=== PATIENT | female | born 1965 | race Caucasian/White ===

== ENCOUNTER 2018-05-31 11:44 | Emergency (ER) | payer SELFPAY ==
[~2018-05-31] VITALS: Ht 157.5 cm; Wt 49.9 kg
[2018-05-31 11:56] VITALS: BP 133/84
[2018-05-31 12:51] LABS: BILIRUBIN,URINE NEGATIVE (NEG); CLARITY,URINE CLEAR; COLOR,URINE YELLOW; NITRITE,URINE NEGATIVE (NEG); PROTEIN,URINE NEGATIVE (NEG-TRACE); UROBILINOGEN,URINE 0.2 mg/dL (0.2 mg/dL)
--- NOTE | 2018-05-31 12:55 | RAD ---
Bilateral hips 2 views each with one view pelvis. HISTORY: Chronic bilateral hip pain Single view was taken of the pelvis. There is no pelvic fracture or acute osseous normality. AP and lateral views were taken of the left hip. There is no fracture or acute osseous abnormality. AP and lateral views were taken of the right hip. There is no fracture or acute osseous abnormality. IMPRESSION: 1. Negative bilateral hips. 2. Negative pelvis. Electronically signed by: Dalton Bennett MD (05/31/2018 12:52 PM) [facility]
[2018-05-31 13:02] LABS: SQUAMOUS EPITHELIAL CELL,UR FEW /LPF
[2018-05-31 13:03] LABS: BACTERIA,URINE 0 /HPF (0-FEW); WBC,URINE OCC /HPF (0-4)
[2018-05-31] MEDS ORDERED: KETOROLAC 60 MG/2 ML VIAL. IM ONE (13:15)
[2018-05-31] MEDS ORDERED: MELO7.5T5 PO (13:28)
--- NOTE | 2018-05-31 13:29 | PHYS DOC ---
Past Medical History Past Medical History: Asthma, COPD, Hypertension Past Surgical History: No Surgical History Alcohol Use: Heavy Drug Use: None Adult General Chief Complaint Chief Complaint: HIP PAIN HPI HPI Patient is a 53 year old female who presents with right hip pain that has worsened over the past 4 days. The patient states that she went to a another ED and had imaging done. They originally told her they thought that she had a broken hip but then later said that the imaging was normal. She states that her hip is continued to worsen. She denies dysuria or other symptoms. She has not taken [id number] pain medication today. Review of Systems Review of Systems Constitutional: Denies fever or chills [] Respiratory: Denies cough or shortness of breath [] Cardiovascular: No additional information not addressed in HPI [] GI: Denies abdominal pain, nausea, vomiting, bloody stools or diarrhea [] : Denies dysuria or hematuria [] Musculoskeletal: See history of present illness Integument: Denies rash or skin lesions [] Neurologic: Denies headache, focal weakness or sensory changes [] Endocrine: Denies polyuria or polydipsia [] All other systems were reviewed and found to be within normal limits, except as documented in this note. Current Medications Current Medications Current Medications Medications (Trade) Dose Ordered Sig/Jen Start Time Stop Time Status Last Admin Dose Admin Ketorolac Tromethamine (Toradol Im) 60 mg 1X ONCE 05/31/18 13:15 05/31/18 13:16 DC 05/31/18 13:13 60 MG Allergies Allergies Allergies Coded Allergies Type Severity Reaction Last Updated Verified Penicillins Allergy Intermediate SWELLING 05/31/18 Yes Physical Exam Physical Exam Constitutional: Well developed, well nourished, no acute distress, non-toxic appearance. [] Cardiovascular:Heart rate regular rhythm, no murmur [] Lungs & Thorax: Bilateral breath sounds clear to auscultation [] Abdomen: Bowel sounds normal, soft, no tenderness, no masses, no pulsatile masses. [] Skin: Warm, dry, no erythema, no rash. [] Back: No tenderness, no CVA tenderness. [] Extremities: tenderness to right hip, no cyanosis, no clubbing, ROM intact, no edema. [] Neurologic: Alert and oriented X 3, normal motor function, normal sensory function, no focal deficits noted. [] Psychologic: Affect normal, judgement normal, mood normal. [] Current Patient Data Vital Signs Vital Signs Date Time Temp Pulse Resp B/P (MAP) Pulse Ox O2 Delivery O2 Flow Rate FiO2 05/31/18 11:56 97.9 90 16 133/84 (100) 99 Room Air 97.9 Lab Values Laboratory Tests Test 05/31/18 12:37 Urine Collection Type Unknown Urine Color Yellow Urine Clarity Clear Urine pH 6.0 Urine Specific [place] <=1.005 Urine Protein Negative mg/dL (NEG-TRACE) Urine Glucose (UA) Negative mg/dL (NEG) Urine Ketones (Stick) Negative mg/dL (NEG) Urine Blood Large (NEG) Urine Nitrite Negative (NEG) Urine Bilirubin Negative (NEG) Urine Urobilinogen Dipstick 0.2 mg/dL (0.2 mg/dL) Urine Leukocyte Esterase Negative (NEG) Urine RBC 6-10 /HPF (0-2) Urine WBC Occ /HPF (0-4) Urine Squamous Epithelial Cells Few /LPF Urine Bacteria 0 /HPF (0-FEW) EKG EKG [] Radiology/Procedures Radiology/Procedures []PATIENT: JAKE SWANACCOUNT: [id number]#: [id number] : 1965 LOCATION: ER AGE: 53 SEX: F EXAM STATUS: REG ER ORD. PHYSICIAN: KAREN PANDYA APRN REASON: worsening right hip pain, hx steroid use PROCEDURE: HIP BILATERAL WITH PELVIS Bilateral hips 2 views each with one view pelvis. HISTORY: Chronic bilateral hip pain Single view was taken of the pelvis. There is no pelvic fracture or acute osseous normality. AP and lateral views were taken of the left hip. There is no fracture or acute osseous abnormality. AP and lateral views were taken of the right hip. There is no fracture or acute osseous abnormality. IMPRESSION: 1. Negative bilateral hips. 2. Negative pelvis. Electronically signed by: Dalton Ross MD (05/31/2018 12:52 PM) [facility] DICTATED and SIGNED BY: DALTON ROSS MD DATE: 05/31/18 9924 Course & Med Decision Making Course & Med Decision Making Pertinent Labs and Imaging studies reviewed. (See chart for details) []The patient was given Toradol in the emergency department for pain. Dragon Disclaimer Dragon Disclaimer This electronic medical record was generated, in whole or in part, using a voice recognition dictation system. Departure Departure Impression: Primary Impression: Hip pain Disposition: 01 HOME, SELF-CARE Condition: STABLE Referrals: NO PCP (PCP) Patient Instructions: Hip Pain Additional Instructions: Take the medication as directed. Do not use ibuprofen or other NSAIDs with this medication. Follow-up with your primary care provider for recheck in 3 days or return to the emergency department if worsening Scripts Meloxicam (MOBIC) 7.5 Mg Tablet 1 TAB PO DAILY for hip pain, #30 TAB 1 Refill Prov: KAREN PANDYA APRN 05/31/18 KAREN PANDYA APRN May 31, 2018 13:29
== END 2018-05-31 13:30 | disposition home or self-care (01) ==
LOC: ER 11:44
DX: M25.551 Pain in right hip (principal); M25.552 Pain in left hip; G89.29 Other chronic pain; J44.9 Chronic obstructive pulmonary disease, unspecified; I10 Essential (primary) hypertension; Z88.0 Allergy status to penicillin
CPT/HCPCS: 73521; 81001; 96372; 99285; J1885

== ENCOUNTER 2018-08-31 12:56 | Emergency (ER) | payer SELFPAY ==
[~2018-08-31] VITALS: Ht 157.5 cm; Wt 49.9 kg
[~2018-08-31 12:56] MED LIST: MELO7.5T5 PO
[2018-08-31 13:27] VITALS: BP 129/75
[2018-08-31] MEDS ORDERED: MUPI22OI2 TP (13:37)
--- NOTE | 2018-08-31 13:38 | PHYS DOC ---
Past Medical History Past Medical History: Asthma, COPD, Hypertension Past Surgical History: No Surgical History Alcohol Use: Heavy Drug Use: None Adult General Chief Complaint Chief Complaint: SKIN PROBLEM HPI HPI Patient is a 53 year old E male who presents to the emergency department with complaints of a itchy red rash to her chest and sometimes has honey crusted scabbing over it for the last week. She denies any fever, cough, nausea, vomiting, or throat, or ear pain. She states that she smokes approximately one pack of cigarettes a day. Patient currently complains of pain a 9 out of 10 on the pain scale, there are no alleviating factors. Review of Systems Review of Systems Constitutional: Denies fever or chills [] Eyes: Denies redness, or eye pain [] HENT: Denies nasal congestion or sore throat [] Respiratory: Denies cough or shortness of breath [] Cardiovascular: No additional information not addressed in HPI [] GI: Denies abdominal pain, nausea, or vomiting Musculoskeletal: Denies back pain or joint pain [] Integument: see history of present illness Neurologic: Denies headache Complete systems were reviewed and found to be within normal limits, except as documented in this note. Allergies Allergies Allergies Coded Allergies Type Severity Reaction Last Updated Verified Penicillins Allergy Intermediate SWELLING 05/31/18 Yes Physical Exam Physical Exam Constitutional: Well developed, well nourished, no acute distress, non-toxic appearance. [] HENT: Normocephalic, atraumatic, bilateral external ears normal, oropharynx moist, nose normal. [] Eyes: conjunctiva normal, no discharge. [] Neck: Normal range of motion, no stridor. [] Cardiovascular:Heart rate regular rhythm, no murmur [] Lungs & Thorax: Bilateral breath sounds clear to auscultation [] Skin: Warm, dry; maculopapular rash noted to chin with some yellow crusting and scabbing present consistent with impetigo Extremities: No cyanosis, ROM intact, Neurologic: Alert and oriented X 3, no focal deficits noted. [] Psychologic: Affect normal, judgement normal, mood normal. [] Current Patient Data Vital Signs Vital Signs Date Time Temp Pulse Resp B/P (MAP) Pulse Ox O2 Delivery O2 Flow Rate FiO2 08/31/18 13:27 98.3 76 16 129/75 (93) 98 Room Air 98.3 EKG EKG [] Radiology/Procedures Radiology/Procedures [] Course & Med Decision Making Course & Med Decision Making Pertinent Labs and Imaging studies reviewed. (See chart for details) [] Angie Disclaimer Shannonon Disclaimer This electronic medical record was generated, in whole or in part, using a voice recognition dictation system. Departure Departure Impression: Primary Impression: Impetigo Disposition: HOME, SELF-CARE Condition: STABLE Referrals: NO PCP (PCP) Patient Instructions: Impetigo Additional Instructions: Fill the prescription and use it as directed, keep fingernails trimmed short and avoid scratching the affected area. Wash your hands thoroughly after applying the medication. Follow-up with your primary care doctor if symptoms persist, return to the ER if symptoms worsen. Scripts Mupirocin (MUPIROCIN OINTMENT) 22 Gm Oint...g. 1 JULIO TP TID for WOUND CARE for 7 Days, #1 TUBE 0 Refills Prov: KEN PIERSON APRN 08/31/18 KEN PIERSON APRN Aug 31, 2018 13:37
== END 2018-08-31 13:42 | disposition home or self-care (01) ==
LOC: ER 12:56
DX: L01.00 Impetigo, unspecified (principal); J44.9 Chronic obstructive pulmonary disease, unspecified; I10 Essential (primary) hypertension; F10.20 Alcohol dependence, uncomplicated; Z88.0 Allergy status to penicillin; Y90.9 Presence of alcohol in blood, level not specified
CPT/HCPCS: 99283

== ENCOUNTER 2019-04-13 12:50 | Emergency (ER) | payer SELFPAY ==
[~2019-04-13] VITALS: Ht 157.5 cm; Wt 50.0 kg
[~2019-04-13 12:50] MED LIST changes: +MUPI22OI2 TP
[2019-04-13 13:08] VITALS: BP 142/69
--- NOTE | 2019-04-13 13:32 | PHYS DOC ---
Past Medical History Past Medical History: Asthma, COPD, Hypertension Past Surgical History: No Surgical History Smoking Status: Current Every Day Smoker Alcohol Use: Heavy Drug Use: None Adult General Chief Complaint Chief Complaint: Neck Pain HPI HPI Patient is a 54 year old female who presents with neck pain has been ongoing for month. The patient states that a week and a half ago she helped a friend move and the pain got worse after this. She denies fevers. Complete ROS were reviewed and found to be within normal limits, except as documented in the HPI Allergies Allergies Allergies Coded Allergies Type Severity Reaction Last Updated Verified Penicillins Allergy Intermediate SWELLING 05/31/18 Yes Physical Exam Physical Exam Constitutional: Well developed, well nourished, no acute distress, non-toxic appearance. [] HENT: Normocephalic, atraumatic, bilateral external ears normal, oropharynx moist, no oral exudates, nose normal. [] Eyes: PERRLA, EOMI, conjunctiva normal, no discharge. [] Neck: Normal range of motion, neck tenderness to palpation, tenderness following the left trapezius muscle, supple, no stridor. [] Neurologic: Alert and oriented X 3, normal motor function, normal sensory function, no focal deficits noted. [] Psychologic: Affect normal, judgement normal, mood normal. [] Current Patient Data Vital Signs Vital Signs Date Time Temp Pulse Resp B/P (MAP) Pulse Ox O2 Delivery O2 Flow Rate FiO2 04/13/19 13:08 98.5 96 20 142/69 (93) 96 Room Air 98.5 EKG EKG [] Radiology/Procedures Radiology/Procedures [] Course & Med Decision Making Course & Med Decision Making Pertinent Labs and Imaging studies reviewed. (See chart for details) Appears to have strained her trapezius muscle. Discussed over the counter interventions such as Therma Care heat, and foam roller. A medical screening exam was performed on this patient and the patient does not appear to be having a medical emergency. Her symptoms are not of sufficient severity and within reasonable medical probability it is unlikely the absence of immediate medical attention would result in placing the health of the individual (or, with respect to a woman, the health of the woman or her unborn child) in serious jeopardy, serious impairment to bodily functions, or serious dysfunction of any bodily organ or part. If , the patient is not in labor Dragon Disclaimer Dragon Disclaimer This electronic medical record was generated, in whole or in part, using a voice recognition dictation system. Departure Departure Impression: Primary Impression: Muscle strain Disposition: 07 AGAINST MEDICAL ADVICE (eloped after talking with registration) Condition: STABLE Referrals: NO PCP (PCP) ALEXX BURRIS APRN Apr 13, 2019 13:32
== END 2019-04-13 13:29 | disposition home or self-care (01) ==
LOC: ER 12:50
DX: S16.1XXA Strain of muscle, fascia and tendon at neck level, initial encounter (principal); J44.9 Chronic obstructive pulmonary disease, unspecified; I10 Essential (primary) hypertension; F17.200 Nicotine dependence, unspecified, uncomplicated; Z88.0 Allergy status to penicillin; X50.9XXA Other and unspecified overexertion or strenuous movements or postures, initial encounter; Y93.89 Activity, other specified; Y92.89 Other specified places as the place of occurrence of the external cause; Y99.8 Other external cause status
CPT/HCPCS: 99281

== ENCOUNTER → 2019-07-17 | Emergency (ER) | payer SELFPAY ==
[~2019-07-17] VITALS: Ht 157.5 cm; Wt 54.0 kg
[~2019-07-17] MED LIST changes: +CIPR500T94 PO; +CIPROFLOXACIN 400MG PREMIX 200 ML IV ONE; +IV NORMAL SALINE 1000ML BAG 1,000 ML IV ONE; +ONDA4TAB7 PO
[2019-07-17 15:02] LABS: BILIRUBIN,URINE NEGATIVE (NEG); CLARITY,URINE CLEAR; COLOR,URINE YELLOW; NITRITE,URINE NEGATIVE (NEG); PROTEIN,URINE NEGATIVE (NEG-TRACE); UROBILINOGEN,URINE 0.2 mg/dL (0.2 mg/dL)
[2019-07-17 15:19] LABS: BACTERIA,URINE FEW /HPF (0-FEW); SQUAMOUS EPITHELIAL CELL,UR FEW /LPF; WBC,URINE >40 /HPF (0-4)
[2019-07-17 16:01] LABS: BASO % 0 % (0-3); EOS % 0 % (0-3); HEMATOCRIT 45.5 % (36.0-47.0); LYMPH # 1.5 x10^3/uL (1.0-4.8); LYMPH % 10 % (24-48); MEAN CORPUSCULAR HEMOGLOBIN 33 pg (25-35); MEAN CORPUSCULAR HGB CONC 35 g/dL (31-37); MEAN CORPUSCULAR VOLUME 94 fL (79-100); MONO # 2.3 x10^3/uL (0.0-1.1); MONO % 15 % (0-9); NEUT # 11.5 x10^3/uL (1.8-7.7); NEUT % 75 % (31-73); PLATELET COUNT 235 x10^3/uL (140-400); RED BLOOD COUNT 4.84 x10^6/uL (3.50-5.40); RED CELL DISTRIBUTION WIDTH 12.8 % (11.5-14.5); WHITE BLOOD COUNT 15.4 x10^3/uL (4.0-11.0)
[2019-07-17 16:09] LABS: CALCIUM 8.7 mg/dL (8.5-10.1); CREATININE 0.8 mg/dL (0.6-1.0); GFR 75.3; POTASSIUM 3.4 mmol/L (3.5-5.1)
[2019-07-17 16:15] LABS: ALBUMIN 3.5 g/dL (3.4-5.0); ALBUMIN/GLOBULIN RATIO 0.9 (1.0-1.7); TOTAL BILIRUBIN 0.3 mg/dL (0.2-1.0); TOTAL PROTEIN 7.5 g/dL (6.4-8.2)
[2019-07-17 16:26] LABS: % BASOS 1 % (0-3); % LYMPHS 14 % (24-48); % MONOS 13 % (0-10); % SEGS 72 % (35-66); PLT ESTIMATE ADEQUATE (ADEQUATE)
--- NOTE | 2019-07-17 17:05 | RAD ---
CT STUDY OF THE ABDOMEN AND PELVIS WITHOUT CONTRAST CLINICAL INDICATIONS: Pyelonephritis. TECHNIQUE: Noncontrast helical CT scanning of the abdomen and pelvis was performed. Without contrast, the sensitivity to detect organ pathology and GI tract pathology is decreased. PQRS compliance Statement One or more of the following individualized dose reduction techniques were utilized for this study: 1. Automated exposure control 2. Adjustment of the mA and/or kV according to patient size 3. Use of iterative reconstruction technique COMPARISON: None available. FINDINGS: The liver and spleen and pancreas are homogeneous in appearance on this noncontrast study. Gallbladder is unremarkable and no extra hepatic biliary ductal dilatation is seen. No adrenal mass is evident. No hydronephrosis or hydroureter or urinary tract stone is seen. The urinary bladder is not distended. There is mild circumferential wall thickening of the urinary bladder. No focal aneurysmal dilatation of the abdominal aorta is seen. No enlarged abdominal or pelvic lymphadenopathy is evident. Small hiatal hernia is seen with wall thickening of the distal esophagus. No obstructive bowel pattern is seen. There is diffuse wall thickening of the colon. There is diffuse wall thickening of this small bowel. There is fluid distention of the small bowel. No obstructive bowel pattern is seen. Findings are consistent with enterocolitis. No free air or free fluid or mesenteric edema is seen. No lung base consolidation is evident. No lytic process is seen. IMPRESSION: Enterocolitis. No hydronephrosis or hydroureter or urinary tract stone is evident. Evaluation for pyelonephritis is difficult without intravenous contrast. However, no perinephric inflammatory stranding or free fluid or abscess is seen. There is mild circumferential wall thickening of the urinary bladder which may be secondary to incomplete distention but could be seen with cystitis. Small hiatal hernia. Wall thickening of the distal esophagus which may be seen with reflux esophagitis. Electronically signed by: Pop Rose MD (07/17/2019 5:02 PM) [id number]
--- NOTE | 2019-07-17 17:34 | PHYS DOC ---
Past Medical History Past Medical History: Anxiety, Asthma, Bipolar, COPD, Hypertension Past Surgical History: No Surgical History Smoking Status: Current Every Day Smoker Alcohol Use: Heavy Drug Use: None General Adult EDM: Chief Complaint: PAIN ON URINATION HPI: HPI: Patient is a 54 year old female presenting to the ED with a chief complaint of burning on urination. Patient states that she has a subjective fever and also had an episode of vomiting this morning. Patient denies vaginal bleeding, vaginal spotting, vaginal discharge. Patient denies flank pain or abdominal pain. Review of Systems: Review of Systems: Constitutional: Complains of fever Eyes: Denies change in visual acuity. [] HENT: Denies nasal congestion or sore throat. [] Respiratory: Denies cough or shortness of breath. [] Cardiovascular: Denies chest pain or edema. [] GI: Denies abdominal pain but does complain of nausea and vomiting : Complains of dysuria Neurologic: Denies headache, focal weakness or sensory changes. [] Heart Score: Risk Factors: Risk Factors: DM, Current or recent (<one month) smoker, HTN, HLP, family history of CAD, obesity. Risk Scores: Score 0 - 3: 2.5% MACE over next 6 weeks - Discharge Home Score 4 - 6: 20.3% MACE over next 6 weeks - Admit for Clinical Observation Score 7 - 10: 72.7% MACE over next 6 weeks - Early Invasive Strategies Current Medications: Current Medications Medications (Trade) Dose Ordered Sig/Jen Start Time Stop Time Status Last Admin Dose Admin Ciprofloxacin/ Dextrose 200 ml @ 200 mls/hr 1X ONCE 07/17/19 17:00 07/17/19 17:59 07/17/19 17:10 200 MLS/HR Sodium Chloride 1,000 ml @ 1,000 mls/hr 1X ONCE 07/17/19 16:00 07/17/19 16:59 DC 07/17/19 16:00 1,000 MLS/HR Allergies: Allergies: Allergies Coded Allergies Type Severity Reaction Last Updated Verified Penicillins Allergy Intermediate SWELLING 05/31/18 Yes Physical Exam: PE: Constitutional: Well developed, well nourished, no acute distress, non-toxic appearance. [] HENT: Normocephalic, atraumatic Eyes: EOMI Neck: Normal range of motion, Supple Cardiovascular:Heart rate regular rhythm Lungs & Thorax: Bilateral breath sounds clear to auscultation [] Abdomen: Bowel sounds normal, soft, no tenderness Extremities: No tenderness, ROM intact Neurologic: Alert and oriented X 3 Current Patient Data: Labs: Laboratory Tests Test 07/17/19 14:46 07/17/19 14:58 07/17/19 15:53 Urine Collection Type Unknown Urine Color Yellow Urine Clarity Clear Urine pH 6.0 (<5.0-8.0) Urine Specific [place] <=1.005 (1.000-1.030) Urine Protein Negative mg/dL (NEG-TRACE) Urine Glucose (UA) Negative mg/dL (NEG) Urine Ketones (Stick) Negative mg/dL (NEG) Urine Blood Moderate (NEG) Urine Nitrite Negative (NEG) Urine Bilirubin Negative (NEG) Urine Urobilinogen Dipstick 0.2 mg/dL (0.2 mg/dL) Urine Leukocyte Esterase Moderate (NEG) Urine RBC 11-20 /HPF (0-2) Urine WBC >40 /HPF (0-4) Urine Squamous Epithelial Cells Few /LPF Urine Bacteria Few /HPF (0-FEW) POC Urine HCG, Qualitative Hcg negative (Negative) White Blood Count 15.4 x10^3/uL (4.0-11.0) H Red Blood Count 4.84 x10^6/uL (3.50-5.40) Hemoglobin 16.0 g/dL (12.0-15.5) H Hematocrit 45.5 % (36.0-47.0) Mean Corpuscular Volume 94 fL (79-100) Mean Corpuscular Hemoglobin 33 pg (25-35) Mean Corpuscular Hemoglobin Concent 35 g/dL (31-37) Red Cell Distribution Width 12.8 % (11.5-14.5) Platelet Count 235 x10^3/uL (140-400) Neutrophils (%) (Auto) 75 % (31-73) H Lymphocytes (%) (Auto) 10 % (24-48) L Monocytes (%) (Auto) 15 % (0-9) H Eosinophils (%) (Auto) 0 % (0-3) Basophils (%) (Auto) 0 % (0-3) Neutrophils # (Auto) 11.5 x10^3/uL (1.8-7.7) H Lymphocytes # (Auto) 1.5 x10^3/uL (1.0-4.8) Monocytes # (Auto) 2.3 x10^3/uL (0.0-1.1) H Eosinophils # (Auto) 0.0 x10^3/uL (0.0-0.7) Basophils # (Auto) 0.0 x10^3/uL (0.0-0.2) Segmented Neutrophils % 72 % (35-66) H Lymphocytes % 14 % (24-48) L Monocytes % 13 % (0-10) H Basophils % 1 % (0-3) Platelet Estimate Adequate (ADEQUATE) Sodium Level 137 mmol/L (136-145) Potassium Level 3.4 mmol/L (3.5-5.1) L Chloride Level 100 mmol/L (98-107) Carbon Dioxide Level 29 mmol/L (21-32) Anion Gap 8 (6-14) Blood Urea Nitrogen 5 mg/dL (7-20) L Creatinine 0.8 mg/dL (0.6-1.0) Estimated GFR (Cockcroft-Gault) 75.3 BUN/Creatinine Ratio 6 (6-20) Glucose Level 118 mg/dL (70-99) H Calcium Level 8.7 mg/dL (8.5-10.1) Total Bilirubin 0.3 mg/dL (0.2-1.0) Aspartate Amino Transferase (AST) 14 U/L (15-37) L Alanine Aminotransferase (ALT) 21 U/L (14-59) Alkaline Phosphatase 72 U/L (46-116) Total Protein 7.5 g/dL (6.4-8.2) Albumin 3.5 g/dL (3.4-5.0) Albumin/Globulin Ratio 0.9 (1.0-1.7) L Laboratory Tests 07/17/19 15:53 Laboratory Tests 07/17/19 15:53 Vital Signs: Vital Signs Date Time Temp Pulse Resp B/P (MAP) Pulse Ox O2 Delivery O2 Flow Rate FiO2 07/17/19 15:47 100 16 97 07/17/19 14:39 98.6 127/82 (97) Room Air 98.6 EKG: EKG: [] Radiology/Procedures: Radiology/Procedures: [] Impression: CT does not show ureteral stones or any inflammatory changes around the kidneys. Course & Med Decision Making: Course & Med Decision Making Pertinent Labs and Imaging studies reviewed. (See chart for details) Ordered labs, UA, IV fluids, CT abdomen pelvis without contrast Labs show the patient has leukocytosis. UA shows that patient has UTI. CT does not show any acute disease. Patient is given IV antibiotics in the ER. Discussed results and plan of care with patient. Patient is instructed to follow up with PCP in one to 2 days. Appropriate discharge instructions given to patient to return to the ED or to seek immediate medical evaluation. Patient is instructed to return to the ED if symptoms worsen or if any concerns. Dragon Disclaimer: [facility] Disclaimer: This electronic medical record was generated, in whole or in part, using a voice recognition dictation system. Departure Departure Impression: Primary Impression: UTI (urinary tract infection) Disposition: 01 HOME, SELF-CARE Condition: STABLE Referrals: NO PCP (PCP) Patient Instructions: Urinary Tract Infection Additional Instructions: Please return to the ED if symptoms worsen or if any concerns. Please follow-up with PCP in 1 to 2 days. Scripts Ondansetron Hcl (ZOFRAN) 4 Mg Tablet 4 MG PO PRN TID PRN for NAUSEA for 5 Days, #15 nausea/vomiting Prov: FREIDA SANTOS DO 07/17/19 Ciprofloxacin Hcl (CIPRO) 500 Mg Tablet 1 TAB PO BID for 10 Days, #20 TAB 0 Refills Prov: FREIDA SANTOS DO 07/17/19 FREIDA SANTOS DO July 17, 2019 17:34
[2019-07-17 17:58] VITALS: BP 132/87
== END ==
LOC: ER 14:31
DX: N39.0 Urinary tract infection, site not specified (principal); R30.9 Painful micturition, unspecified; R50.9 Fever, unspecified; R11.2 Nausea with vomiting, unspecified; F41.9 Anxiety disorder, unspecified; J44.9 Chronic obstructive pulmonary disease, unspecified; F31.9 Bipolar disorder, unspecified; I10 Essential (primary) hypertension; F17.200 Nicotine dependence, unspecified, uncomplicated; F10.10 Alcohol abuse, uncomplicated; Z88.0 Allergy status to penicillin
CPT/HCPCS: 36415; 74176; 80053; 81001; 81025; 85007; 85025; 87086; 96361; 96365; 99285; J0744; J7030

== ENCOUNTER → 2021-01-02 | Outpatient (CLI) | payer OTHER ==
[2019-07-17 17:58] VITALS: BP 132/87
[~2021-01-02] MED LIST changes: -CIPROFLOXACIN 400MG PREMIX 200 ML IV ONE; -IV NORMAL SALINE 1000ML BAG 1,000 ML IV ONE
--- NOTE | 2021-01-02 14:01 | RAD ---
EXAM: Cervical spine, 3 views. HISTORY: Pain. COMPARISON: None. FINDINGS: 3 views of the cervical spine are obtained. There is minimal anterolisthesis of C3 on C4. T here is degenerative endplate remodeling with disc space narrowing and spurring at multiple levels. T he findings are most significant at C4-C5 and C5-C6. There is left greater than right facet arthropat hy at the mid and lower cervical levels. IMPRESSION: Multilevel degenerative change, described above. No acute osseous finding. Electronically signed by: Aileen Kruger MD (01/02/2021 1:59 PM) [id number]
== END ==
LOC: RAD 12:51
PROVIDERS: ATTEND Anesthesiology Pain Medicine
DX: Z02.71 Encounter for disability determination (principal); M47.812 Spondylosis without myelopathy or radiculopathy, cervical region; M43.12 Spondylolisthesis, cervical region; M46.02 Spinal enthesopathy, cervical region
CPT/HCPCS: 72040

== ENCOUNTER 2021-01-16 11:47 | Emergency (ER) | payer OTHER ==
[~2021-01-16] VITALS: Ht 157.5 cm; Wt 52.3 kg
[2021-01-16 12:23] LABS: BILIRUBIN,URINE SMALL (NEG); CLARITY,URINE CLOUDY; COLOR,URINE AMBER; NITRITE,URINE NEGATIVE (NEG); PROTEIN,URINE NEGATIVE (NEG-TRACE); UROBILINOGEN,URINE 0.2 mg/dL (0.2 mg/dL)
[2021-01-16 12:33] LABS: BACTERIA,URINE FEW /HPF (0-FEW); RBC,URINE 20-40 /HPF (0-2)
--- NOTE | 2021-01-16 12:50 | PHYS DOC ---
Past Medical History Past Medical History: Anxiety, Asthma, Bipolar, COPD, Hypertension Past Surgical History: No Surgical History Smoking Status: Current Every Day Smoker Alcohol Use: Occasionally Drug Use: None General Adult EDM: Chief Complaint: PAIN CONTROL HPI: HPI: Patient is a 55-year-old female presents to the emergency department with chief complaint of bilateral left and right low back pain for the past 4 years. Patient reports that she was on her way to see her primary care physician this morning at 8:[address] Chelo Sanchez's office when her car broke down and she is unable to make that appointment, patient reports they secured an appointment for a later time at 1130 this morning however she did not want to get on the bus because it looked full so she decided to walk to her appointment reporting that she missed her 11:30 AM appointment and decided to come to the emergency department for evaluation of her ongoing work comp injury aches and pains from a year ago and her low back pain for the past 4 years. Patient denies recent traumatic injury to her low back. Patient denies increased urinary frequency, urinary burning, pressure with urination, denies bowel or bladder incontinence, denies urinary retention. Denies numbness or tingling to her buttocks or genitals. Denies recent fever or chills, denies history of immunosuppression, cancers, recent fever or chills. Patient states she is a cigarette smoker, denies alcohol use, reports that she does use methamphetamines occasionally, reports that she did use methamphetamines this morning to help wi th her pain control via nasal inhalation, denies a history of IV drug use. Patient reports her pain at a 7-8 out of 10 constant for the past 4 years. Patient does report ongoing neck pain and left wrist pain from a work comp injury from a year ago, reports she had a neck x-ray performed here this past week as ordered by her primary care physician. Patient denies other physical c omplaints or physical concerns. Review of Systems: Review of Systems: 14 body systems of review of systems have been reviewed. See HPI for pertinent positives and negative responses, otherwise all other systems are negative, nonpertinent or noncontributory. Constitutional: Negative except as outlined in HPI above. Skin: Negative except as outlined in HPI above. Eyes: Negative except as outlined in HPI above. HENT: Negative except as outlined in HPI above. Respiratory: Negative except as outlined in HPI above. Cardiovascular: Negative except as outlined in HPI above. GI: Negative except as outlined in HPI above. : Negative except as outlined in HPI above. Musculoskeletal: Negative except as outlined in HPI above. Integument: Negative except as outlined in HPI above. Neurologic: Negative except as outlined in HPI above. Endocrine: Negative except as outlined in HPI above. Lymphatic: Negative except as outlined in HPI above. Psychiatric: Negative except as outlined in HPI above. Heart Score: C/O Chest Pain: No Risk Factors: Risk Factors: DM, Current or recent (<one month) smoker, HTN, HLP, family history of CAD, obesity. Risk Scores: Score 0 - 3: 2.5% MACE over next 6 weeks - Discharge Home Score 4 - 6: 20.3% MACE over next 6 weeks - Admit for Clinical Observation Score 7 - 10: 72.7% MACE over next 6 weeks - Early Invasive Strategies Allergies: Allergies: Allergies Coded Allergies Type Severity Reaction Last Updated Verified Penicillins Allergy Intermediate SWELLING 05/31/18 Yes Uncoded Allergies Type Severity Reaction Last Updated Verified BEE STINGS Allergy Unknown UNKNOWN 01/16/21 Physical Exam: PE: Constitutional: Well developed, well nourished, no acute distress, non-toxic appearance. 55-year-old female appears anxious otherwise in no apparent distress. Patient's complaint of pain level exceeds patient's physical appearance of presentation HENT: Normocephalic, atraumatic. Eyes: Conjunctiva normal, no discharge. Neck: Normal range of motion, no stridor. Cardiovascular: No cyanosis appreciated, distal cap refill less than 2 seconds. Lungs & Thorax: Patient is in no respiratory distress, no audible adventitious lung sounds appreciated. Abdomen: Nontender, no abnormalities noted. Skin: Warm, dry, no erythema, no rash. Back: No tenderness, no deformities. Extremities: No tenderness, no cyanosis, no clubbing, ROM intact, no edema. Pain to right wrist without erythema, edema, swelling, or contusion. Distal cap refill less than 2 seconds, 2+ radial pulses bilaterally, full active range of motion,/passive range of motion of right hand finger and wrist joints, 5 out of 5 strength bilaterally of lower extremities. Intact 5 out of 5 motor strength with bilateral hip flexion, knee flexion/extension, knee adduction, plantar/dorsiflexion at the ankle, and dorsiflexion of the toes bilaterally. Distal cap refill less than 2 seconds of the lower extremities bilaterally, 2+ dorsalis pedal pulses bilaterally. Neurologic: Alert and oriented X 3, normal motor function, normal sensory function, no focal deficits noted. Psychologic: Affect normal, judgement normal, mood normal. Current Patient Data: Labs: Laboratory Tests Test 01/16/21 11:55 Urine Collection Type Void Urine Color [place] Urine Clarity Cloudy Urine pH 5.0 Urine Specific [place] >=1.030 Urine Protein Negative mg/dL Urine Glucose (UA) Negative mg/dL Urine Ketones (Stick) Negative mg/dL Urine Blood Large Urine Nitrite Negative Urine Bilirubin Small Urine Urobilinogen Dipstick 0.2 mg/dL Urine Leukocyte Esterase Negative Urine RBC 20-40 /HPF Urine WBC 1-4 /HPF Urine Squamous Epithelial Cells Many /LPF Urine Bacteria Few /HPF Vital Signs: Vital Signs Date Time Temp Pulse Resp B/P (MAP) Pulse Ox O2 Delivery O2 Flow Rate FiO2 01/16/21 11:51 97.1 96 20 155/87 (109) 97 Room Air 97.1 EKG: EKG: [] Radiology/Procedures: Radiology/Procedures: STATUS: REG ER ORD. PHYSICIAN: ALEXX BAUTISTA APRN REASON: Low back pain, hematuria PROCEDURE: CT ABDOMEN PELVIS WO CONTRAST CT of the abdomen and pelvis without contrast. 01/16/2021 12:52 PM Indication: Reason: Low back pain, hematuria / Spl. Instructions: / History: Comparison Study: CT of the abdomen and pelvis without contrast July 17, 2019 Technique: Multidetector CT imaging of the abdomen pelvis is obtained without administration of contrast. Findings: The visualized bilateral lung bases are clear. The liver, spleen, bilateral adrenal glands, gallbladder, and pancreas have a normal noncontrast enhanced appearance. There is no hydronephrosis. There is a 2 mm nonobstructing stone in the inferior pole the left kidney. No other nephrolithiasis is identified. No significant perinephric stranding is seen. The ureters are unremarkable in course and caliber. The bladder is decompressed. There is no significant free fluid or free air in the abdomen or pelvis. There is no evidence of bowel obstruction or significant inflamatory change There is no acute osseous abnormality identified. Impression: 1. No evidence of acute intra-abdominal abnormality 2. 2 mm nonobstructing stone, inferior pole left kidney. Course & Med Decision Making: Course & Med Decision Making Pertinent Labs and Imaging studies reviewed. (See chart for details) 55-year-old female, vital signs reviewed, presents emergency department for evaluation of chronic pains from injuries from years ago. Patient's main concern is bilateral low back pain for the past 4 years. Will order urinalysis assay, consider pain medications pending results. Patient's urine shows large hematuria, no other infectious process appreciated, discussed findings with patient who reveals she does have a kidney stone from several months ago however she is not sure if she has ever passed it. Patient denies vaginal discharge, denies STI concerns discussed with patient will start IV, order CT abdomen pelvis with IV contrast to evaluate for kidney stone versus other acute abdominal process, will give 30 mg IV Toradol for pain, 1 L normal saline, patient amenable to ED planning. CT abdomen pelvis concerning for kidney stone in the left distal pole. This may be the source of her hematuria. Patient reports she is aware of this 2 mm stone that has been there in the past from 4 months ago. Patient reports good pain relief with IV pain medication given. Reports her pain is down to a 3 out of 10. Discussed with patient strict follow-up with primary care for ongoing pain management of her chronic low back pains and other chronic pains related to previous injuries. Continue to take prescribed medications as directed by her primary care physician. Will prescribe 600 mg ibuprofen for pain. Patient gave verbal understanding of and amenable to ED discharge planning. Discussed with the patient all findings and diagnostic testing as well as the need to follow-up with their primary care provider for further evaluation and treatment or return to the ED if any new or worsening symptoms. Strict return precautions were also discussed at length, the patient voiced understanding and agreement with the discharge planning. The patient was nontoxic in appearance, in no apparent distress, and hemodynamically stable at the time of disposition. Angie Disclaimer: Angie Disclaimer: This electronic medical record was generated, in whole or in part, using a voice recognition dictation system. Departure Departure Impression: Primary Impression: Chronic low back pain Qualified Codes: M54.50 - Low back pain, unspecified; G89.29 - Other chronic pain Additional Impressions: Kidney stone Hematuria Qualified Codes: R31.9 - Hematuria, unspecified Disposition: HOME / SELF CARE / HOMELESS Condition: GOOD Referrals: NO PCP (PCP) CHELO SANCHEZ MD Patient Instructions: Chronic Back Pain, Kidney Stones Additional Instructions: You were seen today in the emergency department for low back pain the you have experienced over the past 4 years. You did have blood in your urine however there was no other infectious concerns. You do not have a urinary tract infection. A CT scan was performed today to examine reasons for your blood in your urine. This revealed a 2 mm stone in your left kidney. You had reported you are aware of this. This is most likely the source of your blood in your urine. Please follow-up with a urologist for ongoing evaluation of this kidney stone. Please keep your future appointments with your primary care physician for ongoing evaluation of your pains. Please take all prescribed medications as directed. Return to the emergency department for worsening symptoms or other concerns. Thank you for visiting our Emergency Department. It was a pleasure taking care of you today in the emergency department and we appreciate you trusting us with your care. If any additional problems come up don't hesitate to return to visit us. Please follow up with your primary care provider so they can plan additional care if needed and know about the problem that you had. If symptoms worsen come back to the Emergency Department. Any concerning symptoms that start such as chest pain, shortness of air, weakness or numbness on one side of the body, running high fevers or any other concerning symptoms return to the ER. EMERGENCY DEPARTMENT GENERAL DISCHARGE INSTRUCTIONS Thank you for coming to [facility] Emergency Department (ED) today and trusting us with you care. We trust that you had a positive experience in our Emergency Department. If you wish to speak to the department management, you may call the Director at [phone]. YOUR FOLLOW UP INSTRUCTIONS ARE FOLLOWS: 1. Do you have a private Doctor? If you do not have a private doctor, please ask for a resource list of physicians or clinics that may be able to assist you with follow up care. 2. The Emergency Physicain has interpreted your x-rays. The X-Ray specialist will also review them. If there is a change in the findings, you will be notified in 48 hours when at all possible. 3. A lab test or culture has been done, your results will be reviewed and you will be notified if you need a change in treatment. ADDITIONAL INSTRUCTIONS AND INFORMATION: 1. Your care today has been supervised by a physician who is specially trained in emergency care. Many problems require more than one evaluation for a complete diagnosis and treatment. We recommend that you schedule your follow up appointment as recomm ended to ensure complete treatment of you illness or injury. If you are unable to obtain follow up care and continue to have a problem, or if your condition worsens, we recommend that you return to the ED. 2. We are not able to safely determine your condition over the phone nor are we able to give sound medical advice over the phone. For these safety reasons, if you call for medical advice we will ask you to come to the ED for further evaluation. 3. If you have any questions regarding these discharge instructions please call the ED at [phone]. SAFETY INFORMATION: In the interest of safety, wellness, and injury prevention; we encourage you to wear your sealbelt, if you smoke; quite smoking, and we encourage family to use a protective helmet for bicycling and other sporting events that present an increased risk for head injury. IF YOUR SYMPTOMS WORSEN OR NEW SYMPTOMS DEVELOP, OR YOU HAVE CONCERNS ABOUT YOUR CONDITION; OR IF YOUR CONDITION WORSENS WHILE YOU ARE WAITING FOR YOUR FOLLOW UP APPOINTMENT; EITHER CONTACT YOUR PRIMARY CARE DOCTOR, THE PHYSICIAN WHOSE NAME AND NUMBER YOU WERE GIVEN, OR RETURN TO THE ED IMMEDIATELY. Scripts Ibuprofen (IBUPROFEN) 600 Mg Tablet 600 MG PO PRN Q6HRS PRN for INFLAMMATION, #30 TAB 0 Refills Prov: ALEXX BAUTISTA APRN 01/16/21 ALEXX BAUTISTA APRN Jan 16, 2021 12:50
--- NOTE | 2021-01-16 13:20 | RAD ---
CT of the abdomen and pelvis without contrast. 01/16/2021 12:52 PM Indication: Reason: Low back pain, hematuria / Spl. Instructions: / History: Comparison Study: CT of the abdomen and pelvis without contrast July 17, 2019 Technique: Multidetector CT imaging of the abdomen pelvis is obtained without administration of contr ast. Findings: The visualized bilateral lung bases are clear. The liver, spleen, bilateral adrenal glands, gallbladder, and pancreas have a normal noncontrast enh anced appearance. There is no hydronephrosis. There is a 2 mm nonobstructing stone in the inferior pole the left kidney . No other nephrolithiasis is identified. No significant perinephric stranding is seen. The ureters a re unremarkable in course and caliber. The bladder is decompressed. There is no significant free fluid or free air in the abdomen or pelvis. There is no evidence of bowel obstruction or significant inflamatory change There is no acute osseo us abnormality identified. Impression: 1. No evidence of acute intra-abdominal abnormality 2. 2 mm nonobstructing stone, inferior pole left kidney. CT DOSING PQRS STATEMENT: One or more of the following individualized dose reduction techniques were utilized for this examinat ion: 1. Automated exposure control 2. Adjustment of the mA and/or kV according to patient size 3. Use of iterative reconstruction technique Electronically signed by: Nabor Glasgow MD (01/16/2021 1:18 PM) [id number]
[2021-01-16] MEDS: KETOROLAC 30 MG/ML VIAL. IVP ONE (13:24)
[2021-01-16] MEDS: IV NORMAL SALINE 1000ML BAG 1,000 ML IV ONE (13:25)
[2021-01-16 13:40] LABS: BASO # 0.1 x10^3/uL (0.0-0.2); BASO % 1 % (0-3); EOS # 0.4 x10^3/uL (0.0-0.7); EOS % 5 % (0-3); HEMATOCRIT 40.4 % (36.0-47.0); HEMOGLOBIN 13.9 g/dL (12.0-15.5); LYMPH # 2.1 x10^3/uL (1.0-4.8); LYMPH % 24 % (24-48); MEAN CORPUSCULAR HEMOGLOBIN 32 pg (25-35); MEAN CORPUSCULAR HGB CONC 34 g/dL (31-37); MEAN CORPUSCULAR VOLUME 93 fL (79-100); MONO # 1.2 x10^3/uL (0.0-1.1); MONO % 13 % (0-9); NEUT % 57 % (31-73); PLATELET COUNT 318 x10^3/uL (140-400); RED BLOOD COUNT 4.35 x10^6/uL (3.50-5.40); RED CELL DISTRIBUTION WIDTH 12.5 % (11.5-14.5); WHITE BLOOD COUNT 8.8 x10^3/uL (4.0-11.0)
[2021-01-16 13:49] LABS: CALCIUM 8.8 mg/dL (8.5-10.1); CREATININE 0.8 mg/dL (0.6-1.0); POTASSIUM 3.3 mmol/L (3.5-5.1)
[2021-01-16 13:55] LABS: ALBUMIN/GLOBULIN RATIO 1.4 (1.0-1.7); TOTAL BILIRUBIN 0.9 mg/dL (0.2-1.0); TOTAL PROTEIN 6.8 g/dL (6.4-8.2)
[2021-01-16] MEDS: POTASSIUM CHLORIDE 20 MEQ TABLET.ER. PO ONE (14:00)
[2021-01-16] MEDS ORDERED: IBUP-1007 PO (14:11)
[2021-01-16 14:30] VITALS: BP 128/64
== END 2021-01-16 14:45 | disposition home or self-care (01) ==
LOC: ER 11:47
DX: N20.0 Calculus of kidney (principal); M54.50 Low back pain, unspecified; G89.29 Other chronic pain; R31.9 Hematuria, unspecified; J44.9 Chronic obstructive pulmonary disease, unspecified; F31.9 Bipolar disorder, unspecified; I10 Essential (primary) hypertension; F17.200 Nicotine dependence, unspecified, uncomplicated; Z88.0 Allergy status to penicillin; Z91.030 Bee allergy status
CPT/HCPCS: 36415; 74176; 80053; 81001; 85025; 96361; 96374; 99284; J1885; J7030